=== PATIENT | male | born 1955 ===

== ENCOUNTER 2017-08-09 07:31 | Emergency (ER) | payer MEDICARE ==
[2017-08-09] MEDS ORDERED: DIPHTH/TETANUS/ACEL. PERTUSSIS IM ONLY ONE (07:40)
[2017-08-09] MEDS ORDERED: METO25TA93 PO (07:47)
[2017-08-09] MEDS ORDERED: HYDR50TA35 PO (07:47)
[2017-08-09] MEDS ORDERED: POTA-1 PO (07:47)
--- NOTE | 2017-08-09 07:47 | ER Report ---
History and Physical Time Seen By MD: 07:39 Hx. of Stated Complaint: PATIENT CUT HIS ARM 2 DAYS AGO. HE DID NOT GET SEEN FOR IT HPI/ROS CHIEF COMPLAINT: Laceration wound check HISTORY OF PRESENT ILLNESS: 61-year-old male who states that 2-3 days prior to presentation had a laceration on his left forearm B reportedly from running into a door patient states that he did not seek medical care but saw today and thought he should get looked at patient denies any neurovascular complaints of any kind patient states that he did not want to seek medical care at that time but thought it looked like he required some today. Patient has no additional complaints noted REVIEW OF SYSTEMS: Respiratory: No cough, no dyspnea. Cardiovascular: No chest pain, no palpitations. Gastrointestinal: No vomiting, no abdominal pain. Musculoskeletal: No back pain. Remainder of the 14 system rev: Yes Reviewed Nurses Notes: Yes Old Medical Records Reviewed: Yes Constitutional Vital Sign - Last 24 Hours 08/09/17 07:35 Temp 98.8 Pulse 101 Resp 20 Pulse Ox 95 O2 Delivery Room Air Physical Exam General appearance: Alert no distress. Respiratory: Chest is non tender, lungs are clear to auscultation. Cardiac: Regular rate and rhythm [ ] Left forearm examination demonstrates a 4-6 cm laceration linear angulated with obvious secondary granulation Sari begun there is no obvious overt signs of infection no signs of cellulitic changes no pus exudate neurovascularly intact clearly already began to healing and secondary intent patient examination is no additional findings DIFFERENTIAL DIAGNOSIS: After history and physical exam differential diagnosis was considered for home care wound check Medical Decision Making ED Course/Re-evaluation ED Course ED clinical course external male who is 3 days status post a wound to the left forearm wound is was cleaned copiously irrigated sterile adhesive was applied with loose closure to prevent wound infection starting him on antibiotics with sterile dressing applied with follow-up with primary care and advised him to return if symptoms worsen neurovascular compromise in to update his tetanus and also is wounds in the future to make sure that he seeks immediate medical attention for deep lacerations Decision to Disposition Date: Aug 09, 2017 Decision to Disposition Time: 07:44 Depart Departure Latest Vital Signs Vital Signs Date Time Temp Pulse Resp B/P (MAP) Pulse Ox O2 Delivery O2 Flow Rate FiO2 08/09/17 07:35 98.8 101 20 95 Room Air Impression: Primary Impression: Encounter for wound care Condition: Improved Disposition: HOME OR SELF-CARE Referrals: GAIL,MEHNAZ [employer] TECHNICIAN 5 Days Patient Instructions: Acute Wound Care (DC) TOMMY ERVIN MD Aug 09, 2017 07:47
[2017-08-09] MEDS ORDERED: AMLO-99 PO (07:50)
[2017-08-09] MEDS ORDERED: PRAV20TA65 PO (07:50)
[2017-08-09] MEDS ORDERED: THEO400T9 PO (07:50)
[2017-08-09] MEDS ORDERED: BUDE10.2 INH (07:50)
[2017-08-09] MEDS ORDERED: ASPI-1471 PO (07:50)
== END 2017-08-09 08:02 | disposition home or self-care (01) ==
LOC: ER 07:44
DX: S51.812A Laceration without foreign body of left forearm, initial encounter (principal); W22.8XXA Striking against or struck by other objects, initial encounter
CPT/HCPCS: 90471; 90715; 99282